=== PATIENT | female | born 1955 | race Caucasian/White ===

== ENCOUNTER → 2024-12-25 08:58 | Outpatient (REF) | payer BC, SELFPAY | LOC: WDC 08:58 | PROVIDERS: ATTENDING PHYSICIAN Physician Assistant Medical | DX: N63.22 Unspecified lump in the left breast, upper inner quadrant (principal); N64.59 Other signs and symptoms in breast | CPT/HCPCS: 76642; 77062; 77066 ==

== ENCOUNTER → 2025-01-02 11:52 | Outpatient (REF) | payer BC, SELFPAY ==
--- NOTE | 2025-01-02 14:08 | OID.BR.INTR ---
[facility] Breast Navigator - Initial
- -
Date of Contact: 01/02/25
Met with patient. Patient given written information on navigator service available at [facility]. Will follow up as needed per protocol.
== END ==
LOC: WDC 11:52
PROVIDERS: ATTENDING PHYSICIAN Physician Assistant Medical
DX: N63.21 Unspecified lump in the left breast, upper outer quadrant (principal)
CPT/HCPCS: 19083; 88305; 88341; 88360; A4648

== ENCOUNTER → 2025-01-30 11:23 | Outpatient (REF) | payer BC, SELFPAY | LOC: MRI 3T 11:23 | PROVIDERS: ATTENDING PHYSICIAN Surgery; FAMILY PHYSICIAN Family Medicine | DX: C50.412 Malignant neoplasm of upper-outer quadrant of left female breast (principal) | CPT/HCPCS: 77049; A9585 ==

== ENCOUNTER → 2025-01-30 13:48 | Outpatient (REF) | payer BC, SELFPAY ==
[2025-01-30 14:47] LABS: ALT (SGPT) 15 U/L (0-35); AST (SGOT) 20 U/L (14-36); Albumin 3.8 g/dl (3.5-5.0); Alkaline Phosphatase 94 U/L (38-126); Blood Urea Nitrogen 12 mg/dl (7-17); Calcium 10.1 mg/dl (8.4-10.2); Carbon Dioxide 29 mmol/L (22-30); Chloride 105 mmol/L (98-107); Glucose 102 mg/dl (70-99); Potassium 4.6 mmol/L (3.5-5.1); Sodium 138 mmol/L (135-145); Total Protein 7.2 g/dl (6.3-8.2); eGFR > 60.00
== END ==
LOC: REG 13:48
PROVIDERS: ATTENDING PHYSICIAN Surgery; FAMILY PHYSICIAN Family Medicine
DX: Z01.812 Encounter for preprocedural laboratory examination (principal); C50.412 Malignant neoplasm of upper-outer quadrant of left female breast
CPT/HCPCS: 36415; 80053

== ENCOUNTER → 2025-01-31 10:17 | Outpatient (REF) | payer BC, SELFPAY | LOC: RAD 10:17 | PROVIDERS: ATTENDING PHYSICIAN Surgery; FAMILY PHYSICIAN Family Medicine | DX: C50.412 Malignant neoplasm of upper-outer quadrant of left female breast (principal) | CPT/HCPCS: 71260; 74177; 78306; A9503; Q9967 ==

== ENCOUNTER 2025-02-05 20:39 | Inpatient (IN) | payer BC, SELFPAY ==
[2025-02-05 14:01] VITALS: BMI 21.4
[2025-02-05 14:05] VITALS: BP 120/69
[2025-02-05 14:28] LABS: Urine Character Slightly Cloudy (Clear)
[2025-02-05 14:49] LABS: Hematocrit 31.3 % (37.0-47.0); Hemoglobin 10.2 g/dL (12.0-16.0); Mean Corp Hgb Conc. 32.6 g/dL (33.0-37.0); Mean Corpuscular Volume 84.6 fL (81.0-99.0); Nucleated Red Blood Cells % 0 %; Platelet Count 465 10^3/uL (130-400); Red Cell Dist. Width 15.2 % (11.5-14.5)
[2025-02-05 14:56] LABS: ALT (SGPT) 11 U/L (0-35); AST (SGOT) 15 U/L (14-36); Albumin 3.1 g/dl (3.5-5.0); Alkaline Phosphatase 55 U/L (38-126); Blood Urea Nitrogen 11 mg/dl (7-17); Calcium 7.9 mg/dl (8.4-10.2); Carbon Dioxide 15 mmol/L (22-30); Chloride 118 mmol/L (98-107); Glucose 74 mg/dl (70-99); Lipase 38 U/L (23-300); Potassium 2.5 mmol/L (3.5-5.1); Sodium 138 mmol/L (135-145); Total Protein 5.3 g/dl (6.3-8.2); eGFR > 60.00
[2025-02-05 15:02] LABS: Urine Squamous Cell 21-25 /LPF (Few)
[2025-02-05 15:58] VITALS: BP 130/76
--- NOTE | 2025-02-05 16:21 | ED.GENMED ---
History of Present Illness
General
Chief Complaint: Abdominal Pain
Time Seen by Provider: 02/05/25 16:09
Course
Orders/Labs/Results
Orders:
Orders
02/05/25 14:20
Complete Blood Count/With Diff Urgent
Comprehensive Metabolic Panel Urgent
Lipase Urgent
Urinalysis Reflex To Culture Urgent
Date Specimen was Collected: 02/05/25
Time Specimen was Collected: 14:12
Urine Microscopic Reflex Cult Urgent
Urine Culture Urgent
NORTH Source: U
Specimen Description:
Date Specimen was Collected: 02/05/25
Time Specimen was Collected: 14:12
Abnormal Lab Results
02/05/25
14:20
WBC 18.8 H 10^3/uL
(4.8-10.8)
RBC 3.70 L 10^6/uL
(4.20-5.40)
Hgb 10.2 L g/dL
(12.0-16.0)
Hct 31.3 L %
(37.0-47.0)
MCHC 32.6 L g/dL
(33.0-37.0)
RDW 15.2 H %
(11.5-14.5)
Plt Count 465 H 10^3/uL
(130-400)
Abs Immat Gran (auto) 0.1 H 10^3/uL
(0-0.05)
Absolute Neuts (auto) 14.8 H 10^3/uL
(1.4-6.5)
Absolute Monos (auto) 1.5 H 10^3/uL
(0.1-0.6)
Immature Gran % 0.7 H %
(0-0.5)
Neutrophils % 78.8 H %
(42.2-75.2)
Lymphocytes % 11.7 L %
(20.5-51.1)
Potassium 2.5 L* mmol/L
(3.5-5.1)
Chloride 118 H mmol/L
(98-107)
Carbon Dioxide 15 L mmol/L
(22-30)
Creatinine 0.5 L mg/dL
(0.6-1.0)
Calcium 7.9 L mg/dl
(8.4-10.2)
Total Protein 5.3 L g/dl
(6.3-8.2)
Albumin 3.1 L g/dl
(3.5-5.0)
Ur Occult Blood Reflex 1+ A
(Negative)
Leukocyte Esterase Rfl 1+ A
(Negative)
Urine RBC 3-6 A /HPF
(0-2)
Urine Bacteria (Reflex) Few A
(Negative)
Urine Albumin (Reflex) 2+ A
(Neg - Trace)
02/05/25 14:20
02/05/25 14:20
Vital Signs
Initial and Last Documented VS:
Initial Vital Signs
Temp Pulse Resp BP Pulse Ox
37.1 C 79 16 120/69 98
02/05/25 14:05 02/05/25 14:05 02/05/25 14:05 02/05/25 14:05 02/05/25 14:05
Last Documented Vital Signs
Temp Pulse Resp BP Pulse Ox
37.1 C 65 15 130/76 98
02/05/25 14:05 02/05/25 16:00 02/05/25 16:00 02/05/25 15:58 02/05/25 14:05
*Pulse Oximetry
SaO2: 98
Oxygen Mode of Delivery: Room air
ED Attending Note
-
Portions of this chart may have been created with voice recognition software.� Occasional wrong word or��sound alike� substitutions may have occurred due to the inherent limitations of voice recognition software.
Discharge Plan
Departure
Prescriptions:
No Action
sertraline 100 mg Tablet
100 mg PO DAILY
acetaminophen [Tylenol] 325 mg Tablet
650 mg PO Q6HPRN PRN (Reason: mild pain)
calcium carbonate [Tums] 200 mg calcium (500 mg) Tablet,Chewable
200 mg PO BIDPRN PRN (Reason: gerd)
Centrum Chewables 8 mg-400 mcg- 10 mcg Tablet,Chewable
1 tab PO DAILY
Referrals:
Richard Duong MD [Family Provider, Family Practice]
Interventions
Interventions:
*Risk Screen - Suicide Last Done: 02/05/25 14:05
*General Assessment Last Done: 02/05/25 15:59
*Neglect/Abuse Screening Last Done: 02/05/25 14:05
*ED- Fall Risk Assessment Last Done: 02/05/25 15:59
*ED COVID-19 Vaccine History Last Done: 02/05/25 15:59
AP-Xsxtgg-Eepwoxuzob Assessment Last Done: 02/05/25 16:00
Discharge Date and Time
Print Language: FINNISH
--- NOTE | 2025-02-05 16:31 | ED.GENMED ---
History of Present Illness
<Gloria Mcmahon NP - Last Filed: 02/05/25 23:54>
General
Chief Complaint: Abdominal Pain
Source: patient
Exam Limitations: none
Time Seen by Provider: 02/05/25 16:09
Nursing documentation reviewed up to this point in time: agreed with
History of Present Illness
History of Present Illness:
Patient sent to ED for abdnormal abdominal CT scan. SHe was recently diagnosed with left breast cancer. She was unable to get an appt for PET scan for weeks out so she was sent for outpatient CT of chest/abd/pelvis by heme/onc and breast surgeon.
CT was completed on 01/31. Results reveal sigmoid diverticulitis with edema and stranding consistent with contained perforation and possible developing pericolonic abscess. SHe was advised by breast surgeon today to come to ED. SHe denies
fever/chills. Reports left sided abd. pain for the past couple weeks. No n/v. Has had diarrhea. Reports poor appetite but this has been an issue for 2 years, after the passing of her . Brought to ED by family for eval.
Past History
<Gloria Mcmahon NP - Last Filed: 02/05/25 23:54>
Past History
ED Past Medical History: Cancer (new left breast cancer.) and Psychiatric (anxiety/depression)
Review of Systems
<Gloria Mcmahon HOSPITALIST NOCTURNIST PHYSICIAN - Last Filed: 02/05/25 23:54>
Review of Systems
Allergies reviewed?: Yes
All Other Systems: ROS reviewed and negative except as documented in HPI and ROS
Constitutional: Reports no symptoms
EENT: Reports no symptoms
Respiratory: Reports no symptoms
Cardiac: Reports no symptoms
ABD/GI: Reports abdominal pain (left abd. pain) and anorexia
: Reports no symptoms
Musculoskeletal: Reports no symptoms
Skin: Reports no symptoms
Neurological: Reports no symptoms
Psychiatric: Reports no symptoms
Phy Exam
<Gloria Mcmahon HOSPITALIST NOCTURNIST PHYSICIAN - Last Filed: 02/05/25 23:54>
General Physical Exam
General Presentation: well appearing and mild distress
General age: appears stated age
General Skin: warm and dry
General Habitus: normal
General Mental: alert
Cardiovascular Exam
Cardiovascular Exam: regular rate/rhythm and no edema
Gastrointestinal Exam
Gastrointestinal Exam: normal bowel sounds, soft, no organomegaly and non distended
Palpation: left upper quadrant: Mild tenderness, left lower quadrant: Moderate tenderness, right upper quadrant: No tenderness and right lower quadrant: No tenderness
Musculoskeletal Exam
Musculoskeletal Exam: full ROM and neuro vasc intact
Skin Exam
Skin Exam: normal color, warm/dry and no rash
Psychiatric Exam
Psychiatric Exam: normal mood/affect
Course
<Gloria Mcmahon HOSPITALIST NOCTURNIST PHYSICIAN - Last Filed: 02/05/25 23:54>
Orders/Labs/Results
Orders:
Orders
02/05/25 14:20
Complete Blood Count/With Diff Urgent
Comprehensive Metabolic Panel Urgent
Lipase Urgent
Magnesium Urgent
Comment: ADD ON
Urinalysis Reflex To Culture Urgent
Date Specimen was Collected: 02/05/25
Time Specimen was Collected: 14:12
Urine Microscopic Reflex Cult Urgent
Urine Culture Urgent
NORTH Source: U
Specimen Description:
Date Specimen was Collected: 02/05/25
Time Specimen was Collected: 14:12
02/05/25 Dinner
NPO
Allow oral meds: Yes
Allow clear liquids: Sips of Clears
02/05/25 16:24
Add On- LAB Urgent
Tests Added?: magnesium
02/05/25 16:28
Potassium Chloride [KCl] 40 meq 0.9% Sodium Chloride 250 ml [Nss] 250 ml IV NOW
02/05/25 17:11
CT Abd/pelvis W Iv Cont Urgent
Comment:
Reason For Exam: divertic with perf seen on CT 01/31
02/05/25 18:29
Iohexol [Omnipaque] See Protocol PO NOW STA
02/05/25 19:00
ColoRectal Surgery Consult Urgent
Consulting Provider: Pasquale Wolf
Was physician already notified: Yes
02/05/25 19:49
Admit/Transfer Patient As Directed
Co-Sign Provider:
Level of Care: Inpatient admission
Assign to:: Medical/Surgical
Physician / Group: [place]
Diagnosis: sigmoid diverticulitis
Reason for Hospitalization: sigmoid diverticulitis
Expected length of stay greater than two midnights?: Yes
ELOS- Estimated Length of Stay in days: 2
I certify the patient meets the requirements for IP care: Yes
02/05/25 19:50
PRN Pain Medication Management As Directed
May give lesser potent ordered pain med per pt: Yes
preference::
Protocol:: Medication orders for pain may be administered in a
manner that supports deferring to patient preference
when the pt is:
- Requesting an ordered lesser potent pain medication.
Least to most potent pain medications are defined
as: acetaminophen < NSAID < tramadol < opioids
(morphine, oxycodone, hydromorphone).
- Requesting a lesser dose of the same medication IF
ORDERED.
- Requesting a less intrusive route of administration
if both routes are prescribed by the provider (PO <
IV).
02/05/25 19:56
Code Status As Directed
Resuscitation Status: Full Code
02/05/25 20:39
Ketorolac [Toradol] 15 mg IV Q6HPRN PRN
Tramadol HCl [Ultram] 50 mg PO Q6HPRN PRN
02/05/25 21:21
Acetaminophen [Tylenol] 650 mg PO Q4HPRN PRN
Bisacodyl [Dulcolax] 10 mg RECTAL [id number] PRN
Docusate W/Senna [Senokot-S] 1 tablet PO BIDPRN PRN
HYDROmorphone [Dilaudid] 0.5 mg IV Q4HPRN PRN
KCl 40 Meq/D5.45sodchl 1000ML [D5/0.45%NSS with KCL 40 MEQ] 40 meq in 1,000 ml IV 100 mls/hr
Metoclopramide [Reglan] 10 mg IV Q6HPRN PRN
Polyethylene Glycol Powder [Miralax] 17 grams PO DAILYPRN PRN
02/05/25 21:21
Activity As Directed
Activity Level: With Assistance
Vital Signs As Directed
Frequency: Per unit guidelines
DX Deep Vein Thrombosis Video Routine
02/05/25 22:00
LevoFLOXacin 750 MG/150 ML [Levaquin] 750 mg in 150 ml IV Q24H
MetroNIDAZOLE 500 MG/100 ML [Flagyl 500 mg] 100 ml IV Q8H
02/06/25 00:00
Acetaminophen [Tylenol] 1,000 mg PO Q6
02/06/25 06:00
Basic Metabolic Panel IN AM
Complete Blood Count/No Diff IN AM
Magnesium IN AM
02/06/25 08:00
Sertraline HCl [Zoloft] 100 mg PO DAILY
02/06/25 18:00
Enoxaparin Sodium [Lovenox] 40 mg SC QPM
Abnormal Lab Results
02/05/25
14:20
WBC 18.8 H 10^3/uL
(4.8-10.8)
RBC 3.70 L 10^6/uL
(4.20-5.40)
Hgb 10.2 L g/dL
(12.0-16.0)
Hct 31.3 L %
(37.0-47.0)
MCHC 32.6 L g/dL
(33.0-37.0)
RDW 15.2 H %
(11.5-14.5)
Plt Count 465 H 10^3/uL
(130-400)
Abs Immat Gran (auto) 0.1 H 10^3/uL
(0-0.05)
Absolute Neuts (auto) 14.8 H 10^3/uL
(1.4-6.5)
Absolute Monos (auto) 1.5 H 10^3/uL
(0.1-0.6)
Immature Gran % 0.7 H %
(0-0.5)
Neutrophils % 78.8 H %
(42.2-75.2)
Lymphocytes % 11.7 L %
(20.5-51.1)
Potassium 2.5 L* mmol/L
(3.5-5.1)
Chloride 118 H mmol/L
(98-107)
Carbon Dioxide 15 L mmol/L
(22-30)
Creatinine 0.5 L mg/dL
(0.6-1.0)
Calcium 7.9 L mg/dl
(8.4-10.2)
Total Protein 5.3 L g/dl
(6.3-8.2)
Albumin 3.1 L g/dl
(3.5-5.0)
Ur Occult Blood Reflex 1+ A
(Negative)
Leukocyte Esterase Rfl 1+ A
(Negative)
Urine RBC 3-6 A /HPF
(0-2)
Urine Bacteria (Reflex) Few A
(Negative)
Urine Albumin (Reflex) 2+ A
(Neg - Trace)
02/05/25 14:20
02/05/25 14:20
Vital Signs
Initial and Last Documented VS:
Initial Vital Signs
Temp Pulse Resp BP Pulse Ox
98.7 F 79 16 120/69 98
02/05/25 14:05 02/05/25 14:05 02/05/25 14:05 02/05/25 14:05 02/05/25 14:05
Last Documented Vital Signs
Temp Pulse Resp BP Pulse Ox
98.5 F 59 18 150/88 98
02/05/25 21:34 02/05/25 21:34 02/05/25 21:34 02/05/25 21:34 02/05/25 21:34
<Praveen Canales, DO - Last Filed: 02/05/25 16:33>
Orders/Labs/Results
Orders:
Orders
02/05/25 14:20
Complete Blood Count/With Diff Urgent
Comprehensive Metabolic Panel Urgent
Lipase Urgent
Magnesium Urgent
Comment: ADD ON
Urinalysis Reflex To Culture Urgent
Date Specimen was Collected: 02/05/25
Time Specimen was Collected: 14:12
Urine Microscopic Reflex Cult Urgent
Urine Culture Urgent
NORTH Source: U
Specimen Description:
Date Specimen was Collected: 02/05/25
Time Specimen was Collected: 14:12
02/05/25 Dinner
NPO
Allow oral meds: Yes
Allow clear liquids: Sips of Clears
02/05/25 16:24
Add On- LAB Urgent
Tests Added?: magnesium
02/05/25 16:28
Potassium Chloride [KCl] 40 meq 0.9% Sodium Chloride 250 ml [Nss] 250 ml IV NOW
02/05/25 17:11
CT Abd/pelvis W Iv Cont Urgent
Comment:
Reason For Exam: divertic with perf seen on CT 01/31
02/05/25 18:29
Iohexol [Omnipaque] See Protocol PO NOW STA
02/05/25 19:00
ColoRectal Surgery Consult Urgent
Consulting Provider: Pasquale Wolf
Was physician already notified: Yes
02/05/25 19:49
Admit/Transfer Patient As Directed
Co-Sign Provider:
Level of Care: Inpatient admission
Assign to:: Medical/Surgical
Physician / Group: [place]
Diagnosis: sigmoid diverticulitis
Reason for Hospitalization: sigmoid diverticulitis
Expected length of stay greater than two midnights?: Yes
ELOS- Estimated Length of Stay in days: 2
I certify the patient meets the requirements for IP care: Yes
02/05/25 19:50
PRN Pain Medication Management As Directed
May give lesser potent ordered pain med per pt: Yes
preference::
Protocol:: Medication orders for pain may be administered in a
manner that supports deferring to patient preference
when the pt is:
- Requesting an ordered lesser potent pain medication.
Least to most potent pain medications are defined
as: acetaminophen < NSAID < tramadol < opioids
(morphine, oxycodone, hydromorphone).
- Requesting a lesser dose of the same medication IF
ORDERED.
- Requesting a less intrusive route of administration
if both routes are prescribed by the provider (PO <
IV).
02/05/25 19:56
Code Status As Directed
Resuscitation Status: Full Code
02/05/25 20:39
Ketorolac [Toradol] 15 mg IV Q6HPRN PRN
Tramadol HCl [Ultram] 50 mg PO Q6HPRN PRN
02/05/25 21:21
Acetaminophen [Tylenol] 650 mg PO Q4HPRN PRN
Bisacodyl [Dulcolax] 10 mg RECTAL [id number] PRN
Docusate W/Senna [Senokot-S] 1 tablet PO BIDPRN PRN
HYDROmorphone [Dilaudid] 0.5 mg IV Q4HPRN PRN
KCl 40 Meq/D5.45sodchl 1000ML [D5/0.45%NSS with KCL 40 MEQ] 40 meq in 1,000 ml IV 100 mls/hr
Metoclopramide [Reglan] 10 mg IV Q6HPRN PRN
Polyethylene Glycol Powder [Miralax] 17 grams PO DAILYPRN PRN
02/05/25 21:21
Activity As Directed
Activity Level: With Assistance
Vital Signs As Directed
Frequency: Per unit guidelines
DX Deep Vein Thrombosis Video Routine
02/05/25 22:00
LevoFLOXacin 750 MG/150 ML [Levaquin] 750 mg in 150 ml IV Q24H
MetroNIDAZOLE 500 MG/100 ML [Flagyl 500 mg] 100 ml IV Q8H
02/06/25 00:00
Acetaminophen [Tylenol] 1,000 mg PO Q6
02/06/25 06:00
Basic Metabolic Panel IN AM
Complete Blood Count/No Diff IN AM
Magnesium IN AM
02/06/25 08:00
Sertraline HCl [Zoloft] 100 mg PO DAILY
02/06/25 18:00
Enoxaparin Sodium [Lovenox] 40 mg SC QPM
Abnormal Lab Results
02/05/25
14:20
WBC 18.8 H 10^3/uL
(4.8-10.8)
RBC 3.70 L 10^6/uL
(4.20-5.40)
Hgb 10.2 L g/dL
(12.0-16.0)
Hct 31.3 L %
(37.0-47.0)
MCHC 32.6 L g/dL
(33.0-37.0)
RDW 15.2 H %
(11.5-14.5)
Plt Count 465 H 10^3/uL
(130-400)
Abs Immat Gran (auto) 0.1 H 10^3/uL
(0-0.05)
Absolute Neuts (auto) 14.8 H 10^3/uL
(1.4-6.5)
Absolute Monos (auto) 1.5 H 10^3/uL
(0.1-0.6)
Immature Gran % 0.7 H %
(0-0.5)
Neutrophils % 78.8 H %
(42.2-75.2)
Lymphocytes % 11.7 L %
(20.5-51.1)
Potassium 2.5 L* mmol/L
(3.5-5.1)
Chloride 118 H mmol/L
(98-107)
Carbon Dioxide 15 L mmol/L
(22-30)
Creatinine 0.5 L mg/dL
(0.6-1.0)
Calcium 7.9 L mg/dl
(8.4-10.2)
Total Protein 5.3 L g/dl
(6.3-8.2)
Albumin 3.1 L g/dl
(3.5-5.0)
Ur Occult Blood Reflex 1+ A
(Negative)
Leukocyte Esterase Rfl 1+ A
(Negative)
Urine RBC 3-6 A /HPF
(0-2)
Urine Bacteria (Reflex) Few A
(Negative)
Urine Albumin (Reflex) 2+ A
(Neg - Trace)
02/05/25 14:20
02/05/25 14:20
Vital Signs
Initial and Last Documented VS:
Initial Vital Signs
Temp Pulse Resp BP Pulse Ox
98.7 F 79 16 120/69 98
02/05/25 14:05 02/05/25 14:05 02/05/25 14:05 02/05/25 14:05 02/05/25 14:05
Last Documented Vital Signs
Temp Pulse Resp BP Pulse Ox
98.5 F 59 18 150/88 98
02/05/25 21:34 02/05/25 21:34 02/05/25 21:34 02/05/25 21:34 02/05/25 21:34
<Gloria Mcmahon HOSPITALIST NOCTURNIST PHYSICIAN - Last Filed: 02/05/25 23:54>
*Radiology
Radiology exam reviewed: radiology read reviewed
*Pulse Oximetry
SaO2: 98
Oxygen Mode of Delivery: Room air
Patient hypoxic: no
*Critical Care Note
Total Time (30-74mins, 75-104mins- exclusive of procedures): Not Applicable
<Gloria Mcmahon NP - Last Filed: 02/05/25 23:54>
Update Note
Update Note:
Patient sent to ED today for abnormal abd. CT results noted on 01/31. CT repeated tonight, findings similar to 01/31. 'Diverticulitis with contained perforation, adjacent pericolonic phlegmonous changes and/or multiple developing colocolonic and
blind ending fisutula tracts medial and superior to the sigmoid colon.' SHe remains afebrile. VSS. WBC 18 however she reports history of leukocytosis. Unknown baseline. K 2.5 noted. Krider 40meq given in ED. WIll admit to hospitalist for
diverticulitis with perforation, hypokalemia. Dr. Wolf consulted
ED Attending Note
<Gloria Mcmahon NP - Last Filed: 02/05/25 23:54>
-
Portions of this chart may have been created with voice recognition software.� Occasional wrong word or��sound alike� substitutions may have occurred due to the inherent limitations of voice recognition software.
<Praveen Canales DO - Last Filed: 02/05/25 16:33>
ED Attending Note
Patient seen and examined by attending physician: Yes
I performed the substantive portion of visit, reviewed & personally made and approve the management plan that is documented in note by myself or GEOVANNA.: Yes
ED Attending Note:
I evaluated the patient at bedside. Leukocytosis is noted and she is also rather hypokalemic. Will discuss with colorectal surgery as patient does have CT imaging that shows contained abscess and likely relatively small perforation related to
diverticulitis.
Discharge Plan
Departure
Patient Disposition: Admit
Date of Disposition: 02/05/25
Time of Disposition: 19:01
Presentation/result/management discussed w/ accepting MD/DO: Hospitalist
Condition: Fair
Covid-19: Not Applicable
Discharge Problem:
Diverticulitis of colon with perforation, Acute hypokalemia
Interventions
Interventions:
*Risk Screen - Suicide Last Done: 02/05/25 14:05
*General Assessment Last Done: 02/05/25 15:59
*Neglect/Abuse Screening Last Done: 02/05/25 14:05
*ED- Fall Risk Assessment Last Done: 02/05/25 15:59
*ED COVID-19 Vaccine History Last Done: 02/05/25 15:59
*Nursing Disposition Last Done: 02/05/25 21:26
JU-Bbngao-Gdbjolkyvd Assessment Last Done: 02/05/25 16:00
Discharge Date and Time
Discharge Date/Time: 02/05/25 21:28
[2025-02-05 17:00] VITALS: BP 127/79
[2025-02-05] MEDS: KCL 270 MEQ IV (17:00)
[2025-02-05 17:02] LABS: Magnesium 2.0 mg/dl (1.6-2.3)
[2025-02-05 18:22] VITALS: BP 118/79
[2025-02-05 19:00] VITALS: BP 119/76
--- NOTE | 2025-02-05 19:25 | HPS.HSE ---
Family Physician
-
Family Physician: Richard Duong
Chief Complaint
-
Abdominal pain
History of Present Illness
This is a 69-year-old female was recently diagnosed with left breast cancer and had a recent CT of the chest abdomen pelvis by heme-onc which was completed on . This revealed sigmoid diverticulitis with edema and stranding with contained
perforation and possible developing pericolonic abscess. She was sent to the emergency department for evaluation.
She has continued to deny any fever or chills but did report left-sided abdominal pain for the past few weeks. She has no nausea or vomiting. She reports some diarrhea but only intermittently. She has had reduced appetite for about 2 years after
the date of spouse.
Patient denies fevers. She denies any night sweats. She denies any weight loss. She has not started on any chemotherapy. She denies any prior history of diverticular disease without diverticulitis. She denies any bloody bowel movements. She
has prior tubal ligation and right total hip arthroplasty but no other surgeries.
The Emergency Department patient was afebrile, blood pressure was 118/79 with a pulse rate of 65 and she was satting 98% on room air.
She has leukocytosis to 18, hemoglobin 10.2 and platelets 465. Electrolyte notable for a potassium of 2.5, bicarb of 15 and a normal BUN/creatinine. Glucose was 74. UA was unremarkable.
CT of the abdomen and pelvis showing sigmoid diverticulitis with evidence of a contained perforation and adjacent pericolonic phlegmonous changes with developing colocolonic and blind-ending fistula tracts medial and superior to the sigmoid colon.
This is similar to the imaging appearance compared to the previous CT on January 31.
Medical History
Past Medical History
Past Medical History: Reports Hypercholesterolemia
Past Surgical History: Reports Gynocological (Tibial ligation), Orthopedic (Right total hip arthroplasty) and Other (Left breast biopsy)
Social History
Tobacco: Former Smoker
Alcohol: Daily (1 to 2 glasses of wine)
Drug: None
Personal:
Living: Alone
Family History
Family History: Not pertinent
Allergies / Home Medications
Allergies reflects when Allergies were last updated in [facility].
Home Medications with original date entered in [facility]
Allergy/Medication List:
Allergies
Allergy/AdvReac Type Severity Reaction Status Date / Time
Penicillins Allergy Hives Verified 02/05/25 14:05
Home Medications
acetaminophen 325 mg tablet (Tylenol) 650 mg PO Q6HPRN PRN mild pain 02/05/25
calcium carbonate (Tums) 200 mg PO BIDPRN PRN gerd 02/05/25
quqizhnb-hqqpskri-ewld 8 mg-folic ac 400 mcg-vit K 10 mcg chew tablet (Centrum Chewables) 1 tab PO DAILY 02/05/25
sertraline 100 mg tablet 100 mg PO DAILY 02/05/25
Review of Systems
-
Constitutional: Reports No Symptoms
EENT: Reports No Symptoms
Respiratory: Reports No Symptoms
Cardiac: Reports No Symptoms
Abdomen/GI: Reports Abdominal Pain and Diarrhea; Denies Nausea, Vomiting, Bloody Stools or Black Stools
: Reports No Symptoms
Musculoskeletal: Reports No Symptoms
Skin: Reports No Symptoms
Neurological: Reports No Symptoms
Endocrine: Reports No Symptoms
Hematologic/Lymphatic: Reports No Symptoms
Psych: Reports No Symptoms
Physical Exam
Vital Signs
Vital Signs
Temp Pulse Resp BP Pulse Ox
98.7 F 65 18 118/79 98
02/05/25 14:05 02/05/25 18:30 02/05/25 18:30 02/05/25 18:22 02/05/25 16:32
Physical Exam
General: Well Developed, Well Nourished and No Apparent Distress
HEENT: NormoCephalic, Moist mucous membranes and Atraumatic
Respiratory: Clear
Cardiac: S1/S2 and Regular Rhythm; No Murmur or Rub
GI: Soft, Non Distended, Normal Bowel Sounds and Tender (mild LLQ, no rebound); No Organomegaly
Rectal: Deferred by Provider
Musculoskeletal: No Clubbing, No Cyanosis and No Edema
Skin: No Rash
Neuro: Nonfocal/grossly intact
Hematologic/Lymphatic: No Lymphadenopathy
Laboratory Results
-
02/05/25 14:20
02/05/25 14:20
Laboratory Results
Total Bilirubin 0.3 mg/dl (0.2-1.3) 02/05/25 14:20
AST 15 U/L (14-36) 02/05/25 14:20
ALT 11 U/L (0-35) 02/05/25 14:20
Alkaline Phosphatase 55 U/L (38-126) 02/05/25 14:20
Lipase 38 U/L (23-300) 02/05/25 14:20
Data Reviewed
-
CT Scan: Report Reviewed by me
Lab Data: Labs Reviewed by me
Old Records: Reviewed
Impression/Plan
-
IMPRESSION:
This is a 69-year-old female who was recently diagnosed with breast cancer pending treatment had a screening/staging CT scan which showed sigmoid diverticulitis with contained perforation and no abscess. Patient is remarkably well-appearing with
mild symptoms given the CT scan. She denies any prior history of diverticulitis. She has not had any systemic signs of an infection. She does have leukocytosis to 18 which is new for her. She has no other explanation for her leukocytosis with
symptoms chest symptoms or skin findings. Suspect complicated chronic diverticulitis for which she had been only minimally symptomatic.
PLAN:
Complicated sigmoid diverticulitis
- Admit to [facility]
- N.p.o. for now
- Patient being seen by surgery at this time
- Will start empiric levofloxacin plus Flagyl, reports severe penicillin allergy with throat tightening plus hives
- Pain control, antiemetics as needed
Hypokalemia -no history of diuretic use. Reduced p.o. intake and some diarrhea could explain some of her apical hypokalemia. No evidence of abdominal association without hypertension or alkalosis.
- Check magnesium
- Getting 40 meq of potassium IV at this time, give another 40 mill equivalents with IV fluids
DVT prophylaxis�Lovenox subcu
CODE STATUS�full code
--- NOTE | 2025-02-05 20:28 | CON.CRS ---
Medical History
-
History of Present Illness:
Patient is a 69-year-old female with PMH of anxiety and depression and recently diagnosed left breast cancer (diagnosed last month, has not received any therapy yet) who presents after incidental finding of diverticulitis on staging CT CAP. She was
ordered for staging scans by her oncologist,which was done on 01/31. The results were received and were shown to have sigmoid diverticulitis with contained perforation as well as phlegmonous changes, possible developing pericolonic abscess. She was
instructed to go to the ED by her oncology team. Colorectal was alerted by Dr. Castro, her breast surgeon. On further questioning, she does report mild abdominal pain that has been ongoing for the last 1 to 2 months. She is unsure the exact
timing because she 'does not pay attention to that sort of thing.' She has never had diverticulitis before. Her last colonoscopy was by Dr. Beckham in 2012, which showed diverticulosis, hemorrhoids and a sigmoid HP. She denies any N/V, fevers, chest
pain/SOB, hematochezia, constipation. She has had intermittent episodes of diarrhea. She denies any urinary complaints. In the ED, her WBC was 18.8 and a repeat scan showed similar results, but with additional concern for possible developing
colocolonic fistula.
Past Medical History
Past Medical History: Other (As above)
Past Surgical History: Other (Right THR, BTL)
Social History
Tobacco: Former Smoker (Quit 1 year ago; smoked regularly from 14 to 19 years old, then stopped during the pregnancies of her children; since then, has smoked irregularly)
Alcohol: Daily (1 to 2 glasses of wine daily)
Drug: None
Family History
Family History: Other (Denies family history of CRC)
Allergies / Home Medications
Allergy/AdvReac Type Severity Reaction Status Date / Time
Penicillins Allergy Hives Verified 02/05/25 14:05
�Medication �Instructions �Recorded �Confirmed �Type
acetaminophen 325 mg tablet 650 mg PO Q6HPRN PRN mild pain 02/05/25 02/05/25 History
(Tylenol)
calcium carbonate (Tums) 200 mg PO BIDPRN PRN gerd 02/05/25 02/05/25 History
ccwcwljh-hrgtfvwc-wkjg 8 mg-folic 1 tab PO DAILY 02/05/25 02/05/25 History
ac 400 mcg-vit K 10 mcg chew
tablet (Centrum Chewables)
sertraline 100 mg tablet 100 mg PO DAILY 02/05/25 02/05/25 History
Review of Systems
-
A 10 point review of systems was completed, and was negative except as per HPI.
Physical Exam
Vital Signs
Temp 98.7 F 02/05/25 14:05
Pulse 63 02/05/25 19:30
Resp Rate 16 02/05/25 19:30
Blood pressure 119/76 02/05/25 19:00
SaO2 98 02/05/25 16:32
02/04/25 02/05/25 02/06/25
06:59 06:59 06:59
Actual Weight 52.9 kg
Body Mass Index (BMI) 21.4
Lab Results / Allergies
02/05/25 14:20
02/05/25 14:20
WBC 18.8 10^3/uL (4.8-10.8) H 02/05/25 14:20
Hgb 10.2 g/dL (12.0-16.0) L 02/05/25 14:20
Hct 31.3 % (37.0-47.0) L 02/05/25 14:20
Plt Count 465 10^3/uL (130-400) H 02/05/25 14:20
Abs Immat Gran (auto) 0.1 10^3/uL (0-0.05) H 02/05/25 14:20
Neutrophils % 78.8 % (42.2-75.2) H 02/05/25 14:20
Allergy/AdvReac Type Severity Reaction Status Date / Time
Penicillins Allergy Hives Verified 02/05/25 14:05
Physical Exam
General: Well Developed, Well Nourished and No Apparent Distress
HEENT: Normocephalic and Atraumatic
Respiratory: Non Labored Respirations
Cardiac: S1/S2
GI: Soft, Non Distended, Tender (Mildly tender in the bilateral lower quadrants, more so on the left, no rebound or guarding) and Other (Palpable umbilical hernia that is partially reducible, minimal tender, no overlying skin changes)
Skin: Warm and Dry
Neuro: AO x 3
Data Reviewed
-
CT Scan: Image Personally Visualized and interpreted, Discussed with Physician (ED provider), Discussed with Patient and Discussed with Family
Labs: Labs Reviewed by me, Discussed with Patient and Discussed with Family
Assessment / Plan
-
69-year-old female with PMH of anxiety and depression and recently diagnosed left breast cancer (diagnosed last month, has not received any therapy yet) who presents after incidental finding of diverticulitis on staging CT CAP. She was ordered for
staging scans by her oncologist,which was done on 01/31. The results were received and were shown to have sigmoid diverticulitis with contained perforation as well as phlegmonous changes, possible developing pericolonic abscess. She was instructed
to go to the ED by her oncology team. Colorectal was alerted by Dr. Castro, her breast surgeon. On further questioning, she does report mild abdominal pain that has been ongoing for the last 1 to 2 months. She is unsure the exact timing because
she 'does not pay attention to that sort of thing.' She has never had diverticulitis before. Her last colonoscopy was by Dr. Beckham in 2012, which showed diverticulosis, hemorrhoids and a sigmoid HP. She denies any N/V, fevers, chest pain/SOB,
hematochezia, constipation. She has had intermittent episodes of diarrhea. She denies any urinary complaints. In the ED, her WBC was 18.8 and a repeat scan showed similar results, but with additional concern for possible developing colocolonic
fistula.
AFVSS
� Sigmoid diverticulitis with likely contained perforation, subclinical presentation
� Lengthy discussion regarding treatment, including nonoperative and operative measures; I explained the preference is nonoperative measures with IV antibiotics and IVF as surgery in the acute setting is more likely to require an open incision as
well as an ostomy; discussed the risks involved with nonoperative measures, including, but not limited to, worsening clinical status, development of an abscess, need for urgent surgery; after this discussion, the patient agreed with nonoperative
measures
� Continue n.p.o. with IVF, will advance diet as tolerated
� Recommend IV lvq/flagyl due to PCN allergy
� Pain control with Tylenol, Toradol, tramadol as needed
� Recommend DVT PPx with Lovenox
� Admit to hospitalist
[2025-02-05 21:34] VITALS: BP 150/88
[2025-02-05 21:37] VITALS: BMI 20.2
[2025-02-05] MEDS: LEVAQUIN 150 IV (22:04)
[2025-02-06] MEDS: FLAGYL 500 MG 100 IV ×4 (00:18→21:16)
[2025-02-06] MEDS: D5/0.45%NSS with KCL 40 MEQ 1000 IV (01:25)
[2025-02-06 05:27] VITALS: BMI 20.2
[2025-02-06 06:49] LABS: Hematocrit 29.8 % (37.0-47.0); Hemoglobin 9.6 g/dL (12.0-16.0); Mean Corp Hgb Conc. 32.2 g/dL (33.0-37.0); Mean Corpuscular Volume 86.1 fL (81.0-99.0); Platelet Count 429 10^3/uL (130-400); Red Cell Dist. Width 14.9 % (11.5-14.5)
[2025-02-06 07:27] LABS: Blood Urea Nitrogen 11 mg/dl (7-17); Calcium 9.5 mg/dl (8.4-10.2); Carbon Dioxide 25 mmol/L (22-30); Chloride 108 mmol/L (98-107); Estimated Creatinine Clearance 59 ml/min; Glucose 89 mg/dl (70-99); Magnesium 2.1 mg/dl (1.6-2.3); Potassium 4.8 mmol/L (3.5-5.1); Sodium 138 mmol/L (135-145); eGFR > 60.00
[2025-02-06 07:50] VITALS: BP 123/70
--- NOTE | 2025-02-06 07:58 | W.PN.HOSP.TC ---
Today's Communication/Plan
-
Continue antibiotic.
Clear liquid diet
Assessment / Plan
Assessment / Plan
Impression:
This is a 69-year-old female who was recently diagnosed with breast cancer pending treatment had a screening/staging CT scan which showed sigmoid diverticulitis with contained perforation and no abscess. Patient is remarkably well-appearing with
mild symptoms given the CT scan. She denies any prior history of diverticulitis. She has not had any systemic signs of an infection. She does have leukocytosis to 18 which is new for her. She has no other explanation for her leukocytosis with
symptoms chest symptoms or skin findings. Suspect complicated chronic diverticulitis for which she had been only minimally symptomatic
Assessment/plan:
Sepsis secondary to complicated sigmoid diverticulitis with contained perforation but no abscess.
Patient meets sepsis criteria with tachypnea and leukocytosis
- [facility]
- Appreciate surgery input
- Will start empiric levofloxacin plus Flagyl, reports severe penicillin allergy with throat tightening plus hives
- Pain control, antiemetics as needed.
- Clear liquid diet
Hypokalemia
Replaced
Breast cancer.
Follow-up with oncology as outpatient.
Depression.
Continue Zoloft
CODE STATUS: Full code
DVT prophylaxis: Lovenox
Diet: Clear liquid diet
Disposition: Continue antibiotic.
Clear liquid diet
Total time spent on today's encounter was 65 minutes which included time spent in counseling the patient/family regarding diagnosis and treatment plan as listed above, goals of care, and symptom management. Case was discussed with nursing staff,
specialists, and care coordinators/case management. All labs and imaging personally reviewed by me. Remainder the time spent in detailed review of previous records, lab data, imaging, and other medical provider documentation.
Anticipated Discharge: > 48 hours
Subjective/Interval History
-
Date of Service: February 06, 2025
Patient seen and examined at bedside, denies any chest pain or shortness of breath, still with lower abdominal pain, no nausea, no vomiting, no diarrhea, surgery advance diet to clears.
Objective Data
-
Labs:
Laboratory Results
02/06/25
05:14
WBC 13.2 H
Hgb 9.6 L
Hct 29.8 L
Plt Count 429 H
Sodium 138
Potassium 4.8 D
Chloride 108 H
Carbon Dioxide 25
BUN 11
Creatinine 0.7
Glucose 89
Calcium 9.5 D
Vital Signs:
Vital Signs
Temp Pulse Resp BP Pulse Ox
98.5 F 59 18 150/88 98
02/05/25 21:34 02/05/25 21:34 02/05/25 21:34 02/05/25 21:34 02/05/25 21:34
Physical Exam
-
General: Well Developed, Well Nourished, No Apparent Distress and Comfortable
HEENT: Normocephalic, Atraumatic, Moist Mucous Membranes, No Ptosis, PERRLA and Nose Appears Normal
Respiratory: Clear to Auscultation and Non Labored Respirations
Cardiac: Regular Rhythm and S1/S2
Breast: Deferred by me
GI: Soft and Tender
Genito-urinary: No Costovertebral Tender
Musculoskeletal: No Clubbing, No Cyanosis and No Edema
Skin: Warm
Neuro: Awake, Alert, Oriented, AO x 3 and No Motor Deficits
Psych: Calm
Data Reviewed
-
Diagnostic Radiology: Image personally visualized and interpreted and Report Reviewed by me
CT Scan: Image personally visualized and interpreted and Report Reviewed by me
Ultrasound: Image personally visualized and interpreted and Report Reviewed by me
MRI: Image personally visualized and interpreted and Report Reviewed by me
Medical Tests (Nuc Med, Echo etc): Image personally visualized and interpreted and Report Reviewed by me
Labs: Labs Reviewed by me
Old Records: Reviewed
[2025-02-06] MEDS: NSS 1000 IV ×2 (08:34→23:02)
[2025-02-06] MEDS: ZOLOFT 100 MG PO (08:35)
--- NOTE | 2025-02-06 09:34 | W.PN.CRS1 ---
Today's Communication / Plan
-
Clears to full's
No plans for surgery
Assessment/Plan
-
Sigmoid diverticulitis with contained perforation as well as phlegmonous changes with possible developing pericolonic abscess .
AFVSS, WBC 13.2 (18.8)
� No plans for surgery at this time. Will advance to clear liquid diet. If tolerates, advance to full this afternoon.
� IV lvq/flagyl due to PCN allergy
� Pain control with Tylenol, Toradol, tramadol as needed
�On DVT PPx with Lovenox
�Appreciate hospitalist
- Will need eventual colonoscopy as she is due
Subjective Data
Subjective Data
Date of Service: February 06, 2025
Patient states she feels 'not bad'. She has flatus. Denies bowel movements. She is hungry. Denies nausea or vomiting.
Objective Data
-
Vital Signs
Temp Pulse Resp BP Pulse Ox
98.3 F 64 18 123/70 97
02/06/25 07:50 02/06/25 07:50 02/06/25 07:50 02/06/25 07:50 02/06/25 07:50
Lab Results
02/06/25 05:14
02/06/25 05:14
Physical Exam
-
General: No Acute Distress and AOx3
Abdomen: Soft, Non Distended and Non Tender
Skin: Warm and Dry
--- NOTE | 2025-02-06 12:27 | CM ---
Reviewed the chart notes and spoke with the patient at the bedside. The patient resides alone in a split level home with two steps to enter. The patient reports no DME/VN/SNF in the past. Patient confirmed her pharmacy of choice is [address]
P[facility] Jimenez. [facility]QU[facility] continues to be available to patient/family and is monitoring medical plan for needs at discharge.
Plan: Discharge plans will depend on the patient's progress.
[2025-02-06 15:40] VITALS: BP 134/80
[2025-02-06] MEDS: REGLAN 10 MG IV (15:55)
[2025-02-06] MEDS: TORADOL 15 MG IV ×2 (16:06→23:02)
[2025-02-06 16:25] VITALS: BMI 20.2
[2025-02-06] MEDS: LOVENOX 40 MG SC (17:43)
[2025-02-06] MEDS: LEVAQUIN 150 IV (23:01)
[2025-02-06 23:32] VITALS: BP 115/57
[2025-02-07] MEDS: FLAGYL 500 MG 100 IV (05:24)
[2025-02-07 07:10] VITALS: BP 129/66
[2025-02-07] MEDS: ZOLOFT 100 MG PO (08:07)
--- NOTE | 2025-02-07 08:52 | W.PN.CRS1 ---
Today's Communication / Plan
-
Low residue
If tolerates okay for discharge from our perspective
Assessment/Plan
-
Sigmoid diverticulitis with contained perforation as well as phlegmonous changes with possible developing pericolonic abscess .
AFVSS, labs pending
� No plans for surgery at this time.
- Advance to low residue
� IV lvq/flagyl due to PCN allergy. Convert to oral antibiotic and finish course as an outpatient.
� Pain control with Tylenol, Toradol, tramadol as needed
�On DVT PPx with Lovenox
�Appreciate hospitalist
- Will need eventual colonoscopy as she is due
- Okay to discharge later today from our perspective if tolerating a low residue diet. Remain on low residue diet as an outpatient. Finish course of outpatient antibiotics. Follow-up in the office with colorectal surgery. Will need eventual
colonoscopy.
Subjective Data
Subjective Data
Date of Service: February 07, 2025
Patient states she is hungry. She is moving her bowels. She has no pain. Denies nausea or vomiting.
Objective Data
-
Vital Signs
Temp Pulse Resp BP Pulse Ox
98.6 F 58 20 129/66 99
02/07/25 07:10 02/07/25 07:10 02/07/25 07:10 02/07/25 07:10 02/07/25 07:10
Intake & Output
02/06/25 02/07/25 02/08/25
06:59 06:59 06:59
Intake Total 920 / 920
Balance 920 / 920
Intake:
Oral fluids 920 / 920
Other:
Number of approximated MODERATE 3
amounts of urine
Number of unmeasured liquid
stools
Rectum 1
Physical Exam
-
General: No Acute Distress and AOx3
Abdomen: Soft, Non Distended and Non Tender
Skin: Warm and Dry
--- NOTE | 2025-02-07 09:35 | PN.CDI ---
CDI
- -
CDI:
Physician Documentation Request
Admit Date: 02/05/25 20:39
Dear Doctor Azucena,
Patient admitted with diverticulitis.
Nursing documentation clinical panel wound care
02/06/25
08:00
Is this a pressure-related injury? [Present on admission Sacrum] Yes
Pressure injury stage [Present on admission Sacrum] Stage 1
Surrounding Skin - [Present on admission Sacrum] Dry and intact
Physician documentation of the type and location of wounds is required for compliant documentation. Based on the above clinical findings and your assessment, please provide the following in your progress note:
1. Location of the ulcer/wound, including laterality.
2. Type (etiology) of ulcer/wound:
- Diabetic ulcer
- Arterial (ischemic) ulcer
- Traumatic wound
- Venous stasis ulcer
- Pressure (decubitus) ulcer
- Non-healing surgical wound
- Other
- Unable to determine
3. For a non-pressure ulcer, please indicate the depth/severity:
- Limited to the breakdown of skin
- With fat layer exposed
- With necrosis of muscle
- With necrosis of bone
- Other
- Unable to determine
4. If a pressure ulcer, please also include the stage* of the ulcer:
- Stage 1 - Skin intact, non-blanchable redness
- Stage 2 - Partial thickness loss of dermis, includes intact or open blister
- Stage 3 - Full thickness tissue not including bone, tendon or muscle
- Stage 4 - Full thickness tissue loss, including exposed bone, tendon or muscle
- Unstageable - Full thickness loss in which the base of the ulcer is covered by slough (yellow, morales, hernadez, green or brown) and/or eschar (morales, brown or black) in the wound bed.
- Unable to determine
Use of terms such as suspected, likely, concern for, or probable (associated with a specific diagnosis that is being evaluated, monitored, or treated as if it exists) are acceptable and can be coded in the inpatient setting, when documented at the
time of discharge.
Thank you,
Valarie Zhao RN, BSN
CDI Specialist
Available via [employer] text
Please use your independent medical judgment in providing your response.
*Source: National Pressure Ulcer Advisory Panel (NPUAP)
[2025-02-07 09:37] LABS: Hematocrit 28.7 % (37.0-47.0); Hemoglobin 9.2 g/dL (12.0-16.0); Mean Corp Hgb Conc. 32.1 g/dL (33.0-37.0); Mean Corpuscular Volume 85.4 fL (81.0-99.0); Platelet Count 419 10^3/uL (130-400); Red Cell Dist. Width 14.8 % (11.5-14.5)
[2025-02-07 10:32] LABS: Blood Urea Nitrogen 9 mg/dl (7-17); Calcium 9.3 mg/dl (8.4-10.2); Carbon Dioxide 23 mmol/L (22-30); Chloride 108 mmol/L (98-107); Estimated Creatinine Clearance 69 ml/min; Glucose 80 mg/dl (70-99); Magnesium 2.0 mg/dl (1.6-2.3); Potassium 4.5 mmol/L (3.5-5.1); Sodium 136 mmol/L (135-145); eGFR > 60.00
[2025-02-07] MEDS: NSS IV (10:39)
--- NOTE | 2025-02-07 11:10 | W.DCSUMMARY ---
Addendum entered and electronically signed by Pelon Zeng MD 02/07/25 11:12:
Pressure injury stage [Present on admission Sacrum]
Stage 1
Original Note:
Discharge Summary
Discharge Data
Date of Admission: 02/05/25
Date of Discharge: 02/07/25
Total time spent discharging patient (in min): 40
-
Pending Results: No
Hospital Course
Hospital course
This is a 69-year-old female who was recently diagnosed with breast cancer pending treatment had a screening/staging CT scan which showed sigmoid diverticulitis with contained perforation and no abscess. Patient is remarkably well-appearing with
mild symptoms given the CT scan. She denies any prior history of diverticulitis. She has not had any systemic signs of an infection. She does have leukocytosis to 18 which is new for her. She has no other explanation for her leukocytosis with
symptoms chest symptoms or skin findings. Suspect complicated chronic diverticulitis for which she had been only minimally symptomatic
In the surgery, started on clear liquid diet which patient tolerated.
Started on IV antibiotic in form of Flagyl and Levaquin, symptoms improved.
Patient tolerated low residual diet and will be discharged home on additional 10 days of antibiotics.
Follow-up with colorectal surgery as outpatient.
During hospitalization patient was treated from the following
Sepsis secondary to complicated sigmoid diverticulitis with contained perforation but no abscess.
Patient meets sepsis criteria with tachypnea and leukocytosis
- Admitted to [facility]
- Appreciate surgery input
- Will start empiric levofloxacin plus Flagyl, reports severe penicillin allergy with throat tightening plus hives
- Pain control, antiemetics as needed.
- Tolerated clear liquid, started on low residual
Hypokalemia
Replaced
Breast cancer.
Follow-up with oncology as outpatient.
Depression.
Continue Zoloft
CODE STATUS: Full code
DVT prophylaxis: Lovenox
Diet: Low residual diet
Disposition: Discharge home today
Total time spent on today's encounter was 40 minutes which included time spent in counseling the patient/family regarding diagnosis and treatment plan as listed above, goals of care, and symptom management. Case was discussed with nursing staff,
specialists, and care coordinators/case management. All labs and imaging personally reviewed by me. Remainder the time spent in detailed review of previous records, lab data, imaging, and other medical provider documentation.
Anticipated Discharge: Today
Discharge Plan
-
Patient Disposition: Home (Routine Discharge)
Discharge Diagnosis/Procedures: Sepsis secondary to complicated sigmoid diverticulitis with contained perforation but no abscess.
Hypokalemia.
Diet: Low Residue
Activity: As tolerated
Instructions: Low-fiber diet
Referrals:
Pasquale Wolf MD [Active, ColoRectal] - in two weeks
Richard Duong MD [Family Provider, [facility]]
Prescriptions:
New
levofloxacin 500 mg tablet
500 mg PO DAILY 10 Days Qty: 10 0RF
metronidazole 500 mg tablet
500 mg PO Q8H 10 Days Qty: 30 0RF
acetaminophen 325 mg Tablet
650 mg PO Q4HPRN PRN (Reason: mild pain/TANG/temp> 100.4F) Qty: 0 0RF
Continued
sertraline 100 mg Tablet
100 mg PO DAILY
acetaminophen [Tylenol] 325 mg Tablet
650 mg PO Q6HPRN PRN (Reason: mild pain)
calcium carbonate [Tums] 200 mg calcium (500 mg) Tablet,Chewable
200 mg PO BIDPRN PRN (Reason: gerd)
Centrum Chewables 8 mg-400 mcg- 10 mcg Tablet,Chewable
1 tab PO DAILY
Discharge Orders:
Discharge Patient (As Directed); Ordered 02/07/25
Ordered By: Pelon Zeng
Discharge Date and Time
Print Language: PORTUGUESE
--- NOTE | 2025-02-07 11:46 | CM ---
Plan: Discharge to home; no needs; daughter will transport home
[2025-02-07 14:09] VITALS: BP 148/81
[2025-02-07 19:23] LABS: Hepatitis C Antibody Negative (Negative)
== END 2025-02-07 14:50 | disposition home or self-care (01) | DRG 872 ==
LOC: 2 NORTH 20:39
PROVIDERS: Student in an Organized Health Care Education/Training Program; ADMITTING PHYSICIAN Internal Medicine; ATTENDING PHYSICIAN General Practice; CONSULT PHYSICIAN Surgery; EMERGENCY PHYSICIAN Emergency Medicine; FAMILY PHYSICIAN Family Medicine
DX: A41.9 Sepsis, unspecified organism (principal); K57.20 Diverticulitis of large intestine with perforation and abscess without bleeding; Z88.0 Allergy status to penicillin; F32.A Depression, unspecified; E87.6 Hypokalemia; C50.912 Malignant neoplasm of unspecified site of left female breast; Z98.51 Tubal ligation status; Z96.641 Presence of right artificial hip joint; Z87.891 Personal history of nicotine dependence; E78.00 Pure hypercholesterolemia, unspecified; F41.9 Anxiety disorder, unspecified; L89.90 Pressure ulcer of unspecified site, unspecified stage; Z79.899 Other long term (current) drug therapy; L89.151 Pressure ulcer of sacral region, stage 1
CPT/HCPCS: 74177; 80048; 80053; 81003; 81015; 83690; 83735; 85025; 85027; 86803; 87086; 96365; 96366; 99285; Q9967

== ENCOUNTER 2025-03-08 05:48 | Inpatient (IN) | payer BC, MEDICARE, SELFPAY ==
[2025-03-06 09:48] LABS: Hematocrit 34.9 % (37.0-47.0); Hemoglobin 11.3 g/dL (12.0-16.0); Mean Corp Hgb Conc. 32.4 g/dL (33.0-37.0); Mean Corpuscular Volume 84.1 fL (81.0-99.0); Nucleated Red Blood Cells % 0 %; Platelet Count 417 10^3/uL (130-400); Red Cell Dist. Width 15.3 % (11.5-14.5)
[2025-03-06 09:59] LABS: APTT 27.8 Sec (23.4-35.0); INR 0.98; PT 13.5 Sec (11.4-14.6)
[2025-03-06 10:20] LABS: ALT (SGPT) 16 U/L (0-35); AST (SGOT) 21 U/L (14-36); Albumin 4.1 g/dl (3.5-5.0); Alkaline Phosphatase 77 U/L (38-126); Blood Urea Nitrogen 14 mg/dl (7-17); Calcium 10.5 mg/dl (8.4-10.2); Carbon Dioxide 28 mmol/L (22-30); Chloride 106 mmol/L (98-107); Glucose 112 mg/dl (70-99); Potassium 4.9 mmol/L (3.5-5.1); Sodium 141 mmol/L (135-145); Total Protein 7.9 g/dl (6.3-8.2); eGFR > 60.00
[2025-03-08] VITALS (13 sets, daily range): BP systolic 108–136; BP diastolic 62–83; BMI 21.4
[2025-03-08] MEDS: LYRICA 150 MG PO (06:31)
[2025-03-08] MEDS: TYLENOL 1000 MG PO ×3 (06:31→23:57)
[2025-03-08] MEDS: CELEBREX 200 MG PO (06:31)
[2025-03-08] MEDS: NORMOSOL-R/PLASMALYTE-A 1000 IV ×2 (06:32→20:01)
[2025-03-08] MEDS: HEPARIN 5000 UNITS SC (06:33)
[2025-03-08] MEDS: RELISTOR 12 MG SC (06:37)
--- NOTE | 2025-03-08 08:39 | W.IMMPOSTOP ---
Surgical Immed Post Op Note
-
Primary Surgeon:
ida
Assisting Surgeon:
Pre-op Diagnosis:
hydronephrosis- diverticulitis and breast ca
Post-op Diagnosis:
same
Procedure Performed:
cysto/bilateral retorgrades/left JJ stent placement and right open ended stent
Anesthesia Type:
gen
Specimen / Cultures:
none
Estimated Blood Loss:
1cc
Complications:
none
Operative Findings:
no bladder pathology
stenotic left UO and long seg of stx in left mid ureter- extrinsic
discussed with colorectal team- may remove right stent and buchanan per protocol- left JJ stent will remain for now
[2025-03-08 12:23] LABS: B.E. - POC -1.1 mmol/L; Glucose - POC 155 mg/dl (70-99); HCO3 - POC 27 mmol/L (21-28); Hematocrit - POC 37 % PCV (37-47); Hemodilution- POC Yes; Hemoglobin Calculated - POC 12.6; Ionized Calcium - POC 1.19 mmol/L (1.15-1.33); Lactate - POC 1.20 mmol/L (0.36-0.75); O2 Saturation %Calculated-POC 85.5 % (94-98); PCO2 - POC 57 mmHg (35-48); PO2 - POC 58 mmHg (83-108); Potassium - POC 4.4 mmol/L (3.5-5.1); Sodium - POC 139 mmol/L (136-145); Specimen Type - POC Venous; pH - POC 7.28 (7.35-7.45)
--- NOTE | 2025-03-08 16:52 | W.IMMPOSTOP ---
Addendum entered and electronically signed by Pasquale Wolf MD 03/08/25 17:26:
updated daughter over the phone
Original Note:
Surgical Immed Post Op Note
-
Primary Surgeon: Pasquale Wolf MD
Assisting Surgeon: Brandon Bustamante MD, DENISSE Samson, COSTA Garnica
Co-Surgeon: Cutris Galaviz MD (urology)
Pre-op Diagnosis: Chronic diverticulitis, left hydronephrosis
Post-op Diagnosis: Chronic diverticulitis, left hydronephrosis, retroperitoneal fibrosis
Procedure Performed: Robotic�assisted low anterior resection, drainage of intraperitoneal abscess, takedown of splenic flexure, flexible sigmoidoscopy, repair of serosal stomach injury, mesenteric angiography with ICG, laparoscopic TAP block;
cystoscopy with left double-J ureteral stent and right straight ureteral stent by urology
Anesthesia Type: General
Specimen / Cultures: Rectosigmoid
Estimated Blood Loss: 400 mL
IVF: 3.5 L
UOP: 700 mL
Complications: None
Operative Findings: Entered via Veress technique, repair of serosal injury of the stomach; placed 3 ports with an assist port and a suprapubic 12 mm port; omentum adherent to the umbilical hernia, reduced with sharp dissection; severe thickening and
inflammation of the sigmoid colon associated with abscess between the sigmoid colon and sacral promontory, as well as abscess adjacent to the left adnexa; mobilized proximally and distally; unable to identify the left ureter as there was diffuse
diffusion of the ICG and severe retroperitoneal fibrosis; unable to identify the STEFAN pedicle due to the severe mesenteric fibrosis associated with the abscess; thickened sigmoid extended into the proximal rectum and proximal sigmoid; performed
flexible sigmoidoscopy and irrigated rectum from residual stool; divided distally at 10 cm from the anal verge with green load of the 60 mm robotic stapler; mobilized proximally up to the distal transverse colon, taking down the splenic flexure; due
to the density of the adhesions and inability to identify the left ureter, I placed a HandPort through a lower midline incision; I was able to free up the sigmoid from the left pelvic brim using finger fracture technique; I was still unable to
identify the left ureter due to the density of the retroperitoneal fibrosis; ligated the remaining sigmoid mesentery with the LigaSure; mobilized the descending colon medially up to the splenic flexure, dividing the left colic artery; performed
flexible sigmoidoscopy and cleaned the rectum from remaining stool; checked mobility with EEA sizers and the rectum was not adequately mobilized; mobilized the rectum to the distal rectum; EEA sizers passed up easily at this point; performed EEA
stapled anastomosis, donuts intact x 2, negative leak test, anastomosis intact on flexible sigmoidoscopy; close the RLQ port site with 0 Vicryl and a Brayan Penny; performed laparoscopic TAP block; closed midline incision in layers with 0 Vicryl
to the peritoneum and 2-0 stratafix to the fascia; irrigated incisions, injected remainder of local and closed with 4-0 Monocryl and Dermabond
--- NOTE | 2025-03-08 17:12 | OR.RPT ---
Operative Report
Operative Report
DATE OF OPERATION: 03/08/2025
SURGEON: Pasquale Wolf MD
PREOPERATIVE DIAGNOSIS: Chronic diverticulitis, left hydronephrosis
POSTOPERATIVE DIAGNOSIS: Chronic diverticulitis, intra-abdominal abscess, left hydronephrosis, retroperitoneal fibrosis
OPERATION: Robotic low anterior resection, repair of serosal injury to stomach, drainage of intra-abdominal abscess x 2, take-down of the splenic flexure, adhesiolysis greater than 2 hr, mesenteric angiography with ICG, flexible sigmoidoscopy,
laparoscopic TAP block; cystoscopy with bilateral ureteral stent placement (left sided double-J stent placed under fluoroscopy) by Urology
ASSISTANTS:
1. Brandon Bustamante MD
2. DENISSE Samson
3. COSTA Garnica
ANESTHESIA: General
ESTIMATED BLOOD LOSS: 400 mL
IVF: 3.5L
URINE OUTPUT: 700 mL
FINDINGS:
1. Tiny serosal injury on anterior wall of stomach, likely from Veress needle; imbricated with two Vicryl stitches
2. Intra-abdominal abscess within the mesentery of the sigmoid medial to the STEFAN pedicle as well as abscess abutting the left adnexa
3. Significant inflammation of the sigmoid colon with severe retroperitoneal fibrosis, precluding adequate visualization of the left ureter; required hand�port in order to dissect sigmoid from the retroperitoneal structures
4. Performed EEA stapled anastomosis from proximal sigmoid to mid-rectum; donuts intact x 2, negative leak test, anastomosis intact on flexible sigmoidoscopy
SPECIMENS:
1. Rectosigmoid colon
DRAINS: None
COMPLICATIONS: No immediate complications.
INDICATIONS: The patient is a 69-year-old female who initially presented to the [place] ED after a staging scan for her recent breast cancer diagnosis showed severe diverticulitis with colocolonic fistula. She recovered with nonoperative
measures. Due to her need for neoadjuvant chemotherapy and the severity of her diverticulitis, a multidisciplinary discussion (with breast surgery and oncology) recommended proceeding with surgery to minimize the risk of recurrent diverticulitis
and possible interruption of her chemotherapy. The operation was discussed with the patient in detail, including the risks, benefits and alternatives. Risks described included, but not limited to, bleeding, infection, anastomotic leak, damage to
nearby structures (i.e.- ureter, bowel, solid organs), incisional hernia, need for ostomy creation, conversion to open, recurrent diverticulitis, altered bowel habit and anesthetic risks, including but not limited to ME, stroke, DVT/PE, respiratory
failure and other organ failure. The patient understood and agreed to proceed.
PROCEDURE IN DETAIL: The patient was taken to the operating room and placed on the operating table in supine position. Sequential compression devices were placed bilaterally. General anesthesia was induced and the patient was intubated without
complication. The patient was placed in lithotomy position with both arms tucked. Urology performed a cystoscopy, placed bilateral ureteral stents, injected each ureter with 2.5mL of ICG and placed a Buchanan. Due to the hydronephrosis seen on the
left side, a double-J stent was placed. The abdomen was prepped and draped in a sterile fashion. A time-out was performed verifying the correct patient, procedure, operative site, positioning, and special equipment. Anesthesia placed an orogastric
tube. Preoperative antibiotics were given. A marking pen was used to marga out the midline.
An 8 mm incision at Meehan's point was made with an 11 blade scalpel. A Veress needle was used to gain abdominal access. After 3 clicks, the insufflation was connected to the Veress needle and the opening pressure was noted to be less than 8 mmHg.
The abdomen was insufflated to a pressure of 12 mmHg. An 8 mm robotic trocar was inserted. The robotic camera was advanced and intra-abdominal placement was confirmed. The abdomen was examined. There was a punctate area noted on the wall of the
anterior stomach with a few drops of oozing blood. No defect in the serosa was obviously seen. No concerning lesions were noted on the surface of the liver or the peritoneum. The remaining three 8mm robotic ports were placed under direct
visualization in a diagonal fashion from Meehan's point to the right lower quadrant, as well as an 8mm assist port in the right lateral mid abdomen, taking care to avoid injury to the right epigastric vessels. The left upper quadrant port was
changed to the air seal port. A 12 mm suprapubic port was placed under direct visualization, taking care to avoid injury to the bladder. The robot was docked from the patient's left side. From the RLQ to Meehan's point, the instruments introduced
were the scissors, camera, bipolar grasper and tip-up grasper, respectively.
I repaired the likely serosal injury to the anterior wall of the stomach using imbricating Vicryl stitches. There was an umbilical hernia with incarcerated omentum. I carefully reduced this, lysing the adhesion from the omentum to the hernia sac. I
turned my attention to the pelvis and left lower quadrant. The small bowel was retracted out of the pelvis and towards the right upper quadrant. The sigmoid colon was noted to be densely adherent to the left pelvic brim and left lower quadrant of
the abdomen. With great care, I began by mobilizing the sigmoid. I took down adhesions from the sigmoid to the left lower quadrant, extending this into the pelvis. I mobilized the proximal sigmoid from a lateral to medial approach and carried
this up to the descending colon. While retracting the sigmoid anteriorly, I attempted to enter a medial plane. The fibrosis from the inflammatory reaction was dense. I used the sacral promontory as a guide. I encountered an abscess pocket with a
few milliliters of purulent fluid, which was immediately suctioned. I was able to identify the presacral space along the sacral promontory. Due to the retroperitoneal fibrosis, I was unable to get into a clean plane posterior to the rectosigmoid.
I continued from a lateral to medial approach. Again, the retroperitoneal fibrosis was severe. Using firefly, the ICG had diffuse dispersion and I was unable to clearly identify the left ureter. I was able to mobilize a lateral to medial plane
distal to the adherent sigmoid. I encountered another abscess pocket adjacent to the left ovary and fallopian tube with a few milliliters of purulent fluid. The purulent fluid was immediately suctioned. I mobilized the left ovary and fallopian
tube away from the sigmoid and created the plane along the left pelvis for further mobilization of the rectosigmoid. I attempted once more to identify the left ureter, but the fibrosis of the retroperitoneum was too thick. Additionally, I was
unable to identify the STEFAN pedicle clearly due to the thickening and fibrosis of the mesentery itself. I continued mobilizing the proximal rectum. I dissected posteriorly along the presacral space down to the mid rectum. I divided the lateral
stalks bilaterally and scored the peritoneum of the anterior peritoneal reflection. The thickening of the sigmoid extended into the proximal rectum. I performed flexible sigmoidoscopy. There was a small amount of liquid stool which was irrigated
and suctioned. The rectum appeared healthy up to about 10 to 12 cm from the anal verge. Therefore, I created a hole in the mesentery at about 10 cm from the anal verge using the vessel sealer. I divided the rectum with a green load of the 60 mm
robotic stapler. I divided the mesorectum that I was able to easily free up from the pelvis. However, I encountered the dense adhesions along the pelvic brim and stopped here as I had not safely dissected this area away from the left ureter. I
discussed the situation with my partner, Dr. Bustamante, who agreed to come assist.
I turned my attention to the proximal colon. I mobilized the left colon up to the distal transverse colon from a lateral to medial approach. I took down the lateral attachments. Retracting the descending colon medially, I mobilized the mesentery
from the retroperitoneum, taking care to avoid injury to the Gerota's fascia. I meticulously divided the splenocolic ligaments, avoiding injury to the spleen. I took this dissection up to the distal transverse colon. At this point, Dr. Bustamante
arrived and explored the situation. I created a HandPort in order to continue the mobilization bluntly. A few of the robotic arms were disconnected. Using the 15 blade scalpel, I created a 7 cm incision, extending cephalad from my suprapubic port
site. I took this down to the level of fascia with electrocautery. Hemostasis was assured. I divided the linea alba and entered the peritoneal space, encountering a guevara of CO2. I placed a GelPort device and the abdomen was reinsufflated. "Edison"Dianna assisted while I performed further laparoscopic�guided mobilization. I was able to bluntly release the sigmoid from the left pelvic brim. There was a small vein that was bleeding near the sacral promontory, which was controlled with the
laparoscopic LigaSure. With the sigmoid now completely mobilized, I felt for the left stent. Again, the retroperitoneal fibrosis was so thick, I was not able to confidently identify the left ureter with the left stent in place. However,
throughout my dissection, I never visualized the ureteral stent so my suspicion for ureteral injury was minimal.
The robot was redocked. I continued my dissection of the proximal colon. From a medial to lateral approach, I identified the correct sub-mesenteric plane and mobilized the mesentery from the retroperitoneum up to the distal transverse colon, to
meet my prior dissection. I encountered the left colic artery during this mobilization and divided this to improve reach. I selected a point in the proximal sigmoid colon where the bowel was clearly healthy. I divided the mesentery up to this
point using the vessel sealer. Anesthesia injected ICG and my proposed transection point appeared well-perfused on firefly.
I elected to proceed with an intracorporeal end-to-end stapled anastomosis with EEA stapler. A colotomy in the devascularized segment of colon was created using the robotic scissors at a point distal to my proposed transection point. The anvil
with a long Prolene suture attached at the tip was then carefully passed through the colotomy and advanced proximally up the descending colon, with the long Prolene remaining outside of the colon. The colotomy was closed around the Prolene stitch
using a V-Loc running stitch. The robotic stapler with a blue load was used to staple and divide the descending colon at the proposed transection point where adequate perfusion was noted on firefly. The specimen was placed in the left upper
quadrant. The Prolene attached to the anvil was grasped and pulled through the staple line after removing a few fabi. I grasped and elevated the anvil and cleaned up the staple line from intervening mesentery and fat. The anvil was seated along
the staple line nicely without intervening diverticula or mesentery. The specimen was removed through the HandPort and passed off for pathology.
I checked the reach of the proposed anastomosis and it was plenty adequate. The operative field was surveyed and hemostasis was ensured. EEA sizers were passed up the rectum to ensure adequate circumference and length. However, the staple line of
the rectum was not sufficiently mobile. I continued posterior dissection of the rectum down to the distal rectum. Mobility was checked once again and was adequate. The EEA stapler was passed transanally to the distal staple line and it seated
nicely. The pin was extended and was connected with the anvil. After ensuring there was no twist to the mesentery and there was no tension, the EEA stapler was closed for 1 minute and fired. Both donuts were intact. A leak test was performed by
filling the pelvis with saline, occluding the proximal lumen and insufflating with the flexible sigmoidoscope. There was no evidence of leak from the anastomosis. Endoscopically, the anastomosis was intact without evidence of bleeding. The
colorectum was desufflated and the flexible sigmoidoscope removed.
The robotic instruments were removed and the robot was undocked. Using laparoscopic visualization, a TAP block was performed using a total of 30 mL of 0.25% Marcaine with epinephrine mixed with dexamethasone and injecting in the transverse
abdominis plane bilaterally. The right lower quadrant 12mm port was closed with a Brayan-Penny and an 0-Vicryl. The remaining ports were removed under direct visualization and no bleeding was noted. The hand�port incision was closed in layers.
First, the peritoneum was closed with a running 0-Vicryl stitch. The anterior fascia was closed using a #1 Stratafix suture. The incisions were irrigated. The remaining 30 cc of 0.25% Marcaine with epinephrine mixed with dexamethasone were
injected around the incisions. The incisions were closed with running subcuticular 4-0 Monocryl and dressed with Dermabond.
At this point, the procedure was complete. The patient was awoken and extubated without complication. The right stent was removed, and the left stent and Buchanan were left in place. All needle, sponge and instrument counts were reported as correct.
The patient tolerated the procedure well and was transferred to the recovery room in stable condition with the buchanan in place.
Of note, Brandon Bustamante MD, medical services assistant, was necessary during this procedure for traction, countertraction, and exploratory purposes. I was present for the entire duration of the case.
DICTATED BY: Pasquale Wolf MD
[2025-03-08 17:38] LABS: Hematocrit 28.9 % (37.0-47.0); Hemoglobin 9.5 g/dL (12.0-16.0); Mean Corp Hgb Conc. 32.9 g/dL (33.0-37.0); Mean Corpuscular Volume 84.5 fL (81.0-99.0); Platelet Count 381 10^3/uL (130-400); Red Cell Dist. Width 15.2 % (11.5-14.5)
[2025-03-08 17:44] LABS: Blood Urea Nitrogen 13 mg/dl (7-17); Calcium 7.9 mg/dl (8.4-10.2); Carbon Dioxide 25 mmol/L (22-30); Chloride 104 mmol/L (98-107); Estimated Creatinine Clearance 51 ml/min; Glucose 147 mg/dl (70-99); Potassium 4.4 mmol/L (3.5-5.1); Sodium 135 mmol/L (135-145); eGFR > 60.00
[2025-03-08 19:39] LABS: Nucleated Red Blood Cells % 0 %
[2025-03-08] MEDS: TORADOL 15 MG IV ×2 (19:58→23:55)
[2025-03-08] MEDS: NORMOSOL-R/PLASMALYTE-A IV (22:50)
[2025-03-09 03:10] VITALS: BP 109/68
[2025-03-09] MEDS: TORADOL 15 MG IV ×4 (05:29→23:44)
[2025-03-09] MEDS: TYLENOL 1000 MG PO ×3 (05:29→23:44)
[2025-03-09 06:00] VITALS: BMI 21.9
[2025-03-09 06:17] LABS: Hematocrit 25.6 % (37.0-47.0); Hemoglobin 8.3 g/dL (12.0-16.0); Mean Corp Hgb Conc. 32.4 g/dL (33.0-37.0); Mean Corpuscular Volume 84.5 fL (81.0-99.0); Nucleated Red Blood Cells % 0 %; Platelet Count 344 10^3/uL (130-400); Red Cell Dist. Width 15.1 % (11.5-14.5)
[2025-03-09 06:38] LABS: Blood Urea Nitrogen 13 mg/dl (7-17); Calcium 8.2 mg/dl (8.4-10.2); Carbon Dioxide 27 mmol/L (22-30); Chloride 104 mmol/L (98-107); Estimated Creatinine Clearance 51 ml/min; Glucose 98 mg/dl (70-99); Magnesium 2.4 mg/dl (1.6-2.3); Potassium 4.4 mmol/L (3.5-5.1); Sodium 136 mmol/L (135-145); eGFR > 60.00
[2025-03-09 08:00] VITALS: BP 120/69
--- NOTE | 2025-03-09 08:28 | W.PN.UPDATE ---
Update Note
Progress Note Update
pt s/p robotic colectomy- with open ended right ureteral stent placement and left JJ stent for obstruction
prolonged case- but pt looks great today
urine with expected old blood- right stent in out
cr stable
reviewed OR findings with patient
buchanan removal in 24 hrs
continue JJ stent
f/u with dr prieto as outpt in 4 weeks to review stent management
[2025-03-09] MEDS: INVANZ 60 MG IV (09:13)
[2025-03-09] MEDS: RELISTOR 12 MG SC (09:14)
[2025-03-09 11:14] VITALS: BP 109/60
[2025-03-09] MEDS: NORMOSOL-R/PLASMALYTE-A 1000 IV (11:24)
--- NOTE | 2025-03-09 13:49 | W.PN.CRS1 ---
Today's Communication / Plan
-
FLD
OOB/Ambulate
Assessment/Plan
-
69 yo female with H/O chronic diverticulitis with left hydronephrosis presenting for operative management:
POD #1 Robotic�assisted low anterior resection, drainage of intraperitoneal abscess, takedown of splenic flexure, flexible sigmoidoscopy, repair of serosal stomach injury, mesenteric angiography with ICG, laparoscopic TAP block; cystoscopy with left
double-J ureteral stent and right straight ureteral stent by urology
AFVSS
Leukocytosis trending down
Drift in h/h post op. Acute blood loss anemia from intraop losses superimposed on chronic anemia.
Renal function WNL
Right stent out. Buchanan in place
Tolerating clears but not much bowel activity yet
Plan:
Advance to FLD
Scheduled Tylenol, toradol and prn narcotics
Invanz x4 days
Continue buchanan, with void trial tomorrow, appreciate urology
OOB/Ambulate
IVF until good PO intake
Lovenox for VTE ppx
Subjective Data
Procedure
03/08/25 Robotic�assisted low anterior resection, drainage of intraperitoneal abscess, takedown of splenic flexure, flexible sigmoidoscopy, repair of serosal stomach injury, mesenteric angiography with ICG, laparoscopic TAP block; cystoscopy with
left double-J ureteral stent and right straight ureteral stent by urology
Subjective Data
Date of Service: March 09, 2025
Pt seen and examined at bedside with Dr. Bustamante. Denies n/v. tolerating clears. Not passing much flatus. Pain minimal and well managed.
Objective Data
-
Vital Signs
Temp Pulse Resp BP Pulse Ox
98.5 F 66 16 109/60 96
03/09/25 11:14 03/09/25 11:14 03/09/25 11:14 03/09/25 11:14 03/09/25 11:14
Intake & Output
03/08/25 03/09/25 03/10/25
06:59 06:59 06:59
Intake Total 1240 / 1240 60 / 60
Output Total 1650 / 1650 150 / 150
Balance -410 / -410 -90 / -90
Intake:
Oral fluids 240 / 240
IV fluids (Total) 1000 / 1000
Normosol 400 / 400
IV piggybacks 60 / 60
Output:
Urine, Buchanan 1650 / 1650 150 / 150
Lab Results
03/09/25 05:43
03/09/25 05:43
Physical Exam
-
General: No Acute Distress and AOx3
Abdomen: Soft, Non Distended and Tender (appropriate to incisions)
Skin: Warm and Dry
Incision: Clear, Dry, Intact
[2025-03-09 15:45] VITALS: BP 108/55
[2025-03-09] MEDS: LOVENOX 40 MG SC (17:16)
[2025-03-09 19:30] VITALS: BP 119/76
[2025-03-09] MEDS: TYLENOL PO (19:42)
[2025-03-09] MEDS: DILAUDID 0.5 MG IV (21:09)
[2025-03-09 22:47] VITALS: BP 111/65
[2025-03-10 03:12] VITALS: BP 118/68
[2025-03-10] MEDS: TYLENOL 1000 MG PO ×4 (05:28→23:47)
[2025-03-10] MEDS: TORADOL 15 MG IV ×4 (05:28→23:47)
[2025-03-10 06:00] VITALS: BMI 21.6
[2025-03-10 06:50] LABS: Hematocrit 27.0 % (37.0-47.0); Hemoglobin 8.6 g/dL (12.0-16.0); Mean Corp Hgb Conc. 31.9 g/dL (33.0-37.0); Mean Corpuscular Volume 88.2 fL (81.0-99.0); Platelet Count 326 10^3/uL (130-400); Red Cell Dist. Width 15.3 % (11.5-14.5)
[2025-03-10 07:15] LABS: Blood Urea Nitrogen 11 mg/dl (7-17); Calcium 8.5 mg/dl (8.4-10.2); Carbon Dioxide 29 mmol/L (22-30); Chloride 106 mmol/L (98-107); Estimated Creatinine Clearance 58 ml/min; Glucose 79 mg/dl (70-99); Potassium 3.9 mmol/L (3.5-5.1); Sodium 135 mmol/L (135-145); eGFR > 60.00
[2025-03-10 07:30] VITALS: BP 117/59
[2025-03-10] MEDS: RELISTOR 12 MG SC (08:43)
[2025-03-10] MEDS: INVANZ 60 MG IV (08:43)
--- NOTE | 2025-03-10 08:57 | W.PN.UPDATE ---
Update Note
Progress Note Update
pt s/p stents- left JJ and robotic colectomy
doing well
mica andrade- chanel now out
again reviewed plan
start detrol and sicharge with this
f/u with dr prieto to discuss stent management after discharge
call with any further questions or concerns
[2025-03-10] MEDS: NORMOSOL-R/PLASMALYTE-A IV (09:21)
[2025-03-10] MEDS: DETROL LA 4 MG PO (10:03)
[2025-03-10] MEDS: ZOLOFT 100 MG PO (10:03)
[2025-03-10 11:07] VITALS: BP 119/67
--- NOTE | 2025-03-10 11:40 | W.PN.CRS1 ---
Today's Communication / Plan
-
Advance diet, d/c IVF
Assessment/Plan
-
69 yo female with H/O chronic diverticulitis with left hydronephrosis presenting for operative management:
POD #2 Robotic�assisted low anterior resection, drainage of intraperitoneal abscess, takedown of splenic flexure, flexible sigmoidoscopy, repair of serosal stomach injury, mesenteric angiography with ICG, laparoscopic TAP block; cystoscopy with left
double-J ureteral stent and right straight ureteral stent by urology
AFVSS
Leukocytosis continues trending down
H/H stable
Renal function WNL
Voiding s/p catheter removal
Tolerating liquids with evidence of bowel recovery (+bm/flatus)
Plan:
Advance to regular diet
Scheduled Tylenol, toradol and prn narcotics
Invanz x4 days
OOB/Ambulate
D/C IVF
Lovenox for VTE ppx
Subjective Data
Procedure
03/08/25 Robotic�assisted low anterior resection, drainage of intraperitoneal abscess, takedown of splenic flexure, flexible sigmoidoscopy, repair of serosal stomach injury, mesenteric angiography with ICG, laparoscopic TAP block; cystoscopy with
left double-J ureteral stent and right straight ureteral stent by urology
Subjective Data
Date of Service: March 10, 2025
Pt seen and examined at bedside with Dr. Bustamante. Denies n/v. Tolerating diet. Passed a loose bm this am. Passing flatus. Minimal discomfort.
Objective Data
-
Vital Signs
Temp Pulse Resp BP Pulse Ox
98.2 F 63 16 119/67 96
03/10/25 11:07 03/10/25 11:07 03/10/25 11:07 03/10/25 11:07 03/10/25 11:07
Intake & Output
03/09/25 03/10/25 03/11/25
06:59 06:59 06:59
Intake Total 1240 / 1240 2039 / 2039
Output Total 1650 / 1650 1075 / 1075
Balance -410 / -410 965 / 965
Intake:
Oral fluids 240 / 240 780 / 780
IV fluids (Total) 1000 / 1000 1200 / 1200
Normosol 400 / 400
IV piggybacks 60 / 60
Output:
Urine, Cox 1650 / 1650 1075 / 1075
Lab Results
03/10/25 05:52
03/10/25 05:52
Physical Exam
-
General: No Acute Distress and AOx3
Abdomen: Soft, Non Distended, Tender (appropriate to incisions) and Other (soft, reducible umbilical hernia)
Skin: Warm and Dry
Incision: Clear, Dry, Intact
[2025-03-10 15:11] VITALS: BP 126/72
--- NOTE | 2025-03-10 15:50 | CM ---
CM met with pt bedside
She resides alone in a split level home 2STE
5 steps up to sleeping and bathing area
Pt is independent with her ADLs, no DMEs
No hx with VN/SNF
Works full-time at [employer]
PCP- Richard Duong
Rx- [facility] [place]
Pt is POD#2 sigmoidectomy and cystoscopy with stent
Pt recently diagnosed with breast CA and udner care Dr Castro and Perez
Plan to cancer TBD once abdominal issues have resolved
Pt plans to dc to dtr's home in [place] for care
Anticipate no needs on dc
Discharge Disposition- home tp dtr's house, no dc needs anticipated
[2025-03-10] MEDS: LOVENOX 40 MG SC (17:24)
[2025-03-10 23:20] VITALS: BP 126/68
[2025-03-11 06:00] VITALS: BMI 21.2
[2025-03-11] MEDS: TYLENOL 1000 MG PO ×2 (06:13→12:04)
[2025-03-11] MEDS: TORADOL 15 MG IV ×2 (06:13→12:05)
[2025-03-11 07:25] VITALS: BP 128/83
[2025-03-11] MEDS: ZOLOFT 100 MG PO (08:03)
[2025-03-11] MEDS: DETROL LA 4 MG PO (08:03)
[2025-03-11] MEDS: RELISTOR 12 MG SC (08:03)
[2025-03-11] MEDS: INVANZ 60 MG IV (08:04)
--- NOTE | 2025-03-11 10:31 | W.PN.CRS1 ---
Today's Communication / Plan
-
Discharge.
Assessment/Plan
-
POD 3.
1. tolerating diet with bowel function.
2. vitals fine.
3. ok for discharge.
Subjective Data
Procedure
03/08/25 Robotic�assisted low anterior resection, drainage of intraperitoneal abscess, takedown of splenic flexure, flexible sigmoidoscopy, repair of serosal stomach injury, mesenteric angiography with ICG, laparoscopic TAP block; cystoscopy with
left double-J ureteral stent and right straight ureteral stent by urology
Subjective Data
Date of Service: March 11, 2025
Tolerating diet with BMs.
Pain control reasonable.
Objective Data
-
Vital Signs
Temp Pulse Resp BP Pulse Ox
98.4 F 65 18 128/83 97
03/11/25 07:25 03/11/25 07:25 03/11/25 07:25 03/11/25 07:25 03/11/25 09:19
Intake & Output
03/10/25 03/11/25 03/12/25
06:59 06:59 06:59
Intake Total 2039 / 0 1360 / 1360 60 / 60
Output Total 1075 / 1075
Balance 965 / 965 1360 / 1360 60 / 60
Intake:
Oral fluids 780 / 780 1260 / 1260
IV fluids (Total) 1200 / 1200 100 / 100
IV piggybacks 60 / 60 60 / 60
Output:
Urine, Cox 1075 / 1075
Other:
Number of approximated MODERATE 3
amounts of urine
Number of approximated LARGE 2
amounts of urine
Lab Results
03/10/25 05:52
03/10/25 05:52
Physical Exam
-
General: No Acute Distress
Chest: Clear
Cardiovascular: Regular Rate & Rhythm
Abdomen: Soft, Non Distended and Tender (mild incisonal)
Extremities: No Calf Tenderness
Incision: Clear, Dry, Intact and No Skin Erythema
--- NOTE | 2025-03-11 11:40 | W.DS.TRANS ---
Addendum entered and electronically signed by ADELINE Carrera 03/11/25 13:25:
dictated #[id number]
Original Note:
DC Summary - Dukey Rider
-
Discharge Instructions:
Discharge Diagnosis/Procedures chronic diverticulitis with left hydronephrosis
Robotic�assisted low anterior resection,
drainage of intraperitoneal abscess, takedown of
splenic flexure, flexible sigmoidoscopy, repair
of serosal stomach injury, mesenteric
angiography with ICG, laparoscopic TAP block
cystoscopy with left double-J ureteral stent (
currently in place) and right straight ureteral
stent (removed)
Diet Regular,As tolerated
Additional Diets Eat small meals at first as bloating is common
Activity No strenuous activity
Additional Activity Do not lift over 10lbs (gallon of milk)
Driving Restrictions Wait until off narcotics/comfortable twisitng
Bathing Restrictions OK to Shower
Wound Care Allow the glue to flake off your incisions on
its own over the next 2-3 weeks. Avoid scrubbing
or picking off. Do not soak in a tub or pool
until incisions healed (approx 2 weeks)
Instructions:
Stand-Alone Forms:
Changes to Home Medications: No
Discharge Medications:
DC Medications w/original date entered in [employer]
calcium carbonate (Tums) 200 mg PO BIDPRN PRN gerd 02/05/25
kffwqggv-ycjlcajn-dzwh 8 mg-folic ac 400 mcg-vit K 10 mcg chew tablet (Centrum Chewables) 1 tab PO DAILY 02/05/25
sertraline 100 mg tablet 100 mg PO DAILY 02/05/25
acetaminophen 325 mg tablet 650 mg (2 x 325 mg) PO Q4HPRN PRN mild pain/TANG/temp> 100.4F #0 tabs 02/07/25
calcium carbonate (Calcium 600) 1,200 mg PO DAILY 03/01/25
cholecalciferol (vitamin D3) 25 mcg (1,000 unit) tablet (Vitamin D3) 50 mcg PO DAILY 03/01/25
ibuprofen 200 mg tablet 400 - 600 mg (2 - 3 x 200 mg) PO Q6HPRN PRN moderate pain #1 tab 03/11/25
oxycodone 5 mg tablet 5 mg PO Q4HPRN PRN breakthrough/severe pain #15 tabs 03/11/25
tolterodine 4 mg capsule,extended release 24 hr 4 mg PO DAILY #30 caps 03/11/25
Home Medication Changes
Pending Results: No
--- NOTE | 2025-03-11 12:10 | CM ---
CM following re: discharge planning.
Reviewed pt's chart, met with pt.
Discharge order noted. pt is aware, expressed her agreement with discharge and pt stated her daughter will transport home.
IMM reviewed, placed on chart, pt has a copy.
No after care VN needs identified.
D/C plan: home no needs. Daughter to transport.
[2025-03-11] MEDS: FLUZONE HIGH-DOSE 2025-26 0.5 ML IM (13:03)
[2025-03-11 15:35] VITALS: BP 130/92
== END 2025-03-11 16:41 | disposition home or self-care (01) | DRG 329 ==
LOC: 2 SOUTH 05:48
PROVIDERS: Registered Nurse; ADMITTING PHYSICIAN Surgery
PROC: 0DNN4ZZ Release Sigmoid Colon, Percutaneous Endoscopic Approach (ICD-10-PCS; 2025-03-08)
PROC: 0DJD8ZZ Inspection of Lower Intestinal Tract, Via Natural or Artificial Opening Endoscopic (ICD-10-PCS; 2025-03-08)
PROC: 0DTN4ZZ Resection of Sigmoid Colon, Percutaneous Endoscopic Approach (ICD-10-PCS; 2025-03-08)
PROC: 0DTP4ZZ Resection of Rectum, Percutaneous Endoscopic Approach (ICD-10-PCS; 2025-03-08)
PROC: 8E0W4CZ Robotic Assisted Procedure of Trunk Region, Percutaneous Endoscopic Approach (ICD-10-PCS; 2025-03-08)
PROC: 3E02340 Introduction of Influenza Vaccine into Muscle, Percutaneous Approach (ICD-10-PCS; 2025-03-11)
DX: K57.20 Diverticulitis of large intestine with perforation and abscess without bleeding (principal); K65.1 Peritoneal abscess; N13.30 Unspecified hydronephrosis; D62 Acute posthemorrhagic anemia; K42.0 Umbilical hernia with obstruction, without gangrene; K66.0 Peritoneal adhesions (postprocedural) (postinfection); Z85.3 Personal history of malignant neoplasm of breast; Z23 Encounter for immunization
CPT/HCPCS: 36415; 71046; 74420; 76000; 80048; 80053; 83735; 85025; 85027; 85610; 85730; 86850; 86900; 86901; 88307; 90662; 93005; A4300; C2617; G0008; J1335

== ENCOUNTER → 2025-05-06 09:42 | Outpatient (REF) | payer BC, SELFPAY | LOC: WDC 09:42 | PROVIDERS: ATTENDING PHYSICIAN Surgery | DX: C50.412 Malignant neoplasm of upper-outer quadrant of left female breast (principal) | CPT/HCPCS: 19285; 38792; 76942; A4648; A9541 ==

== ENCOUNTER 2025-05-07 06:45 | Day surgery (SDC) | payer BC, SELFPAY ==
[2025-04-22 11:38] LABS: Hematocrit 37.6 % (37.0-47.0); Hemoglobin 11.6 g/dL (12.0-16.0); Mean Corp Hgb Conc. 30.9 g/dL (33.0-37.0); Mean Corpuscular Volume 88.5 fL (81.0-99.0); Platelet Count 357 10^3/uL (130-400); Red Cell Dist. Width 15.1 % (11.5-14.5)
[2025-04-22 12:02] LABS: ALT (SGPT) 21 U/L (0-35); AST (SGOT) 24 U/L (14-36); Albumin 4.7 g/dl (3.5-5.0); Alkaline Phosphatase 94 U/L (38-126); Blood Urea Nitrogen 14 mg/dl (7-17); Calcium 10.3 mg/dl (8.4-10.2); Carbon Dioxide 28 mmol/L (22-30); Chloride 105 mmol/L (98-107); Glucose 99 mg/dl (70-99); Potassium 4.8 mmol/L (3.5-5.1); Sodium 139 mmol/L (135-145); Total Protein 8.2 g/dl (6.3-8.2); eGFR > 60.00
[2025-04-22 12:12] LABS: Prealbumin (Transthyretin) 26.9 mg/dl (17.6-36.0)
[2025-04-22 12:26] LABS: Vitamin D, 25-OH*** 44.8 ng/mL (30-80)
[2025-04-22 14:01] VITALS: BMI 21.2
[2025-05-07 11:24] VITALS: BP 122/67; BMI 21.2
[2025-05-07] MEDS: TYLENOL 1000 MG PO (11:43)
[2025-05-07] MEDS: NORMOSOL-R/PLASMALYTE-A 1000 IV (11:54)
[2025-05-07] MEDS: LOVENOX 40 MG SC (12:53)
[2025-05-07] MEDS: VANCOCIN 200 IV (12:54)
--- NOTE | 2025-05-07 15:24 | W.IMMPOSTOP ---
Surgical Immed Post Op Note
-
Primary Surgeon: Gloria
Assisting Surgeon: None
Pre-op Diagnosis: Left breast ca
Post-op Diagnosis: Same
Procedure Performed: Left localized lumpectomy, sentinel lymph node mapping and biopsy, oncoplastic mastoplasty
Anesthesia Type: TIVA
Specimen / Cultures: left lumpectomy, margins, sentinel nodes
Estimated Blood Loss: 10cc
Complications: None
Operative Findings: clip, reflector and calcifications in lymph node
--- NOTE | 2025-05-07 15:26 | OR.RPT ---
Operative Report
Operative Report
Date of procedure: 05/07/2025
Surgeon: Gloria
Procedure: Left localized lumpectomy, sentinel lymph node mapping and biopsy, oncoplastic mastoplasty
Preoperative diagnosis: Left breast carcinoma
Postoperative diagnosis: Same
The patient is a 69-year-old female presented with image detected left breast carcinoma. This was HER2 positive disease however not elevated to the size mandating neoadjuvant chemotherapy therefore she presents for left localized lumpectomy and
sentinel lymph node mapping and biopsy. On the day prior to the procedure she was seen in the [facility] where a Susana wash plant operator reflector was placed at the tumor site and technetium radiotracer was injected into the breast parenchyma.
On the day of the surgery she presented to the same-day surgical services unit. She was prepped and verified site and procedure. DVT and antibiotic prophylaxis were provided.
She was taken to the operating room and in the supine position intravenous sedation was delivered. A timeout procedure was performed by all staff members. All tissues were anesthetized with 1% lidocaine plain. Attention was first turned to the
axilla where a curvilinear incision was made inferior to the hairline overlying the area of highest external gamma count. Dissection was carried through the clavipectoral fascia using the cautery. 2 sentinel node packets were encountered and
excised. Feeding vessels to the nodes were controlled with 3-0 silk tie. After their removal there was a greater than fourfold reduction of background count. Hemostasis was verified. Marcaine 0.5% plain was instilled and the wound was closed
using simple interrupted 2-0 Polysorb on deep intermediate and subcutaneous tissue and skin was closed with a running subcuticular 4 Monocryl. Next attention was turned to the lumpectomy where a curvilinear incision was made overlying the area of
highest external Susana signal. Skin flaps were elevated and dissection was carried down to the mass which was widely excised. Time out of body was noted and the specimen was oriented for the pathologist. Specimen radiography confirmed the presence
of clip, reflector, and calcs within it. Additional margins were sent for permanent analysis from the posterior, medial, superior, lateral, inferior, and anterior dimensions. These were oriented as well. This left a resulting defect of 5 x 4 cm
therefore in an oncoplastic fashion a separate parenchymal incision was made to advance tissue as an advancement flap. Hemostasis was verified. Marcaine 0.5% plain was instilled and hemoclips were placed in the resection cavity. The wound was
reconstructed using simple interrupted 2-O Polysorb on deep intermediate and subcutaneous tissue and skin was closed with a running subcuticular 4 Monocryl. Surgical glue and sterile compressive dressings were applied. All sponge needle and
instrument counts were correct and the patient was transferred to the recovery room in stable condition
([id number])
Bethany Node Bx Breast Cancer
Bethany Node Bx Breast Cancer
Operation performed with curative intent: Yes
Tracer(s) to ID Bethany Nodes in Non-Neoadjuvant setting: Radioactive Tracer
Tracer(s) to ID Sentinal Nodes in the Neoadjuvant Setting: N/A
All nodes at end of dye-filled Lymphatic Channel removed: N/A
All Significantly Radioactive Nodes were removed: Yes
All Palpably Suspicious Nodes were Removed: Yes
Bx Proven Pos Nodes Marked Prior to Chemo ID'd & Removed: Yes
[2025-05-07 15:32] VITALS: BP 129/77
[2025-05-07 15:45] VITALS: BP 139/84
[2025-05-07 16:00] VITALS: BP 141/88
== END 2025-05-07 16:44 | disposition home or self-care (01) ==
LOC: SDS 06:45
PROVIDERS: ATTENDING PHYSICIAN Surgery; FAMILY PHYSICIAN Family Medicine
DX: C50.912 Malignant neoplasm of unspecified site of left female breast (principal); Z17.0 Estrogen receptor positive status [ER+]
CPT/HCPCS: 38525; 19301; 38900; 76098; 80053; 82306; 84134; 85027; 88305; 88307; 88341; 88342; 88360; 93005